=== PATIENT | male | born 1940 | race Caucasian/White ===

== ENCOUNTER → 2016-09-02 | Outpatient (CLI) | payer MEDICARE, OTHER ==
--- NOTE | 2016-09-02 10:33 | CT ---
EXAM DESCRIPTION: CT ABDOMEN WITHOUT IV CONTRAST CLINICAL HISTORY: 75 y/o M, AORTIC DISSECTION COMPARISON: None TECHNIQUE: Thin slice axial images of the abdomen were performed without contrast. FINDINGS: Bilateral emphysema noted. Scarring seen within the right lower lobe. Nodular opacity seen within the right lower lobe. The largest measures 4 mm in diameter There is a dissection of the abdominal aorta. This is poorly visualized on today's study. It is within the thoracic abdominal aorta and the upper abdominal aorta. The AP diameter of the aorta at the level of the aortic hiatus is 2.9 cm. Spleen is unremarkable. The liver is unremarkable. Gallbladder is unremarkable. Small bowel and colon which are incompletely imaged demonstrate no concerning findings. Bilateral kidneys are unobstructed. There are likely peripelvic cysts noted. IMPRESSION: Poorly visualized thoracic and abdominal aortic dissection. The abdominal aorta measures 2.9 cm of the level of the aortic hiatus and 2.2 cm proximal to the bifurcation. Electronically signed by: Kirill Ash MD 09/02/2016 10:31
== END ==
LOC: CT 09:22
PROVIDERS: ATTEND Family Medicine
DX: I71.01 Dissection of thoracic aorta (principal)

== ENCOUNTER → 2017-07-06 | Outpatient (CLI) | payer MEDICARE, OTHER | END | disposition home or self-care (01) | LOC: GMAH 10:23 | PROVIDERS: ATTEND Family Medicine | DX: Z12.5 Encounter for screening for malignant neoplasm of prostate (principal); E78.2 Mixed hyperlipidemia; E53.8 Deficiency of other specified B group vitamins | CPT/HCPCS: 82607; 84443; 84550; G0103 ==

== ENCOUNTER → 2017-08-30 | Outpatient (CLI) | payer MEDICARE, OTHER ==
--- NOTE | 2017-08-30 21:45 | CT ---
EXAM DESCRIPTION: CTA Chest CT. CLINICAL HISTORY: ASCENDING AORTA GRAFT. Surgical repair of aortic dissection. COMPARISON: CT scan of the abdomen without contrast 09/02/2016. TECHNIQUE: Spiral-axial scans at 5.0 mm intervals through the lungs and thorax with IV contrast. Coronal and sagittal 2.0 mm constructions. Oblique sagittal "candy cane" and orthogonal long axis MIP 5.0 mm reconstructions. No adverse reactions. Total Exam DLP: 596.47 mGy-cm. This exam was performed according to our departmental dose-optimization program which includes automated exposure control, adjustment of the mA and/or kV according to patient size and/or use of iterative reconstruction technique; to reduce radiation dose to as low as reasonably achievable (ALARA). FINDINGS: An aortic dissection can be seen that begins anterior to the origin of the right innominate artery and extends into the distal aortic arch, the descending thoracic aorta, and at least to the level of the origin of the left renal artery. Both lumens of the dissected aorta contain contrast material with the larger accessory lumen demonstrating gradually decreasing contrast into the abdomen. The smaller main lumen connects with the larger accessory lumen via a long narrow channel in the dissected wall, in the mid-arch. The main lumen, which connects with the aortic root and ascending aortic arch supplies the brachiocephalic vessels, celiac axis, SMA, and the right renal artery. The minimally opacified larger accessory lumen supplies the left renal artery; no significant amount of contrast seen in the artery. Low-density not opacified material begins at the level of the aortic root; and extends past the origin of the dissection to the top of the aortic arch. Minimal irregular contrast density between this nonopacified material and the aortic wall at the root. Similar irregular contrast density is noted at the base of the dissection in the proximal arch, abutting the main lumen. Surgical clips abutting the dissection origin and sternotomy wires are also noted. No extravasation of contrast from the distal aortic arch to the most inferior image. Scarring in the bilateral bases more on the right. No pleural effusion or pneumothorax. Scattered small parenchymal blebs. Bilateral basilar pleural thickening. 6.4 x 5.2 mm soft tissue nodule subpleural left lower lobe (series 2, image 46). Totals. Minimal bilateral pleural thickening. No soft tissue masses or enlarged lymph nodes in the mediastinum or hilar regions. No enlarged lymph nodes in the axilla. Symmetric contrast enhancement of the thyroid gland. No pericardial contrast or effusion. Diffuse thoracic kyphosis with narrowing of some anterior vertebral bodies heights. Also levo kyphoscoliosis. Included adrenal glands and spleen are normal density and enhancement. Nephrogram seen in the left kidney but not the right. Included liver and pancreas are unremarkable. Partial visualization of the gallbladder and common bile duct. No subdiaphragmatic fluid or free air in the included peritoneal space. IMPRESSION: 1. Aortic dissection with previous repair beginning anterior and distal to the brachial cephalic vessels and extending at least to the level of the left renal artery. The smaller main lumen supplies the brachiocephalic vessels, celiac axis, SMA, and right renal artery. Nephrogram in the right kidney. The larger accessory lumen demonstrates progressively decreasing contrast to the left renal artery; left kidney does not show any significant enhancement. The lumens communicate via a channel in the arch. 2. Nonopacified hematoma/soft tissue forms a collar which is abutting the aortic root laterally and anteriorly and extends to the beginning of the dissection. Irregular contrast enhancement in the superior and inferior margins of this soft tissue/hematoma, abutting the main lumen. Surgical clips at the origin of the dissection. 3. soft tissue nodule with mean diameter 5.8 mm in the subpleural left lower lobe. Considering [facility] Best Practice recommendations based upon 2017 Fleischner Society recommendations for single solid lung nodule follow-up, chest CT follow-up for the nodule should be performed in 12 month interval. Please see below.* *2017 Fleischner Society Recommendations for Single Solid Lung Nodule Follow-Up based on size (average of long- and short-axis diameters) <6 mm Low-Risk Patient: No routine follow-up <6 mm High-Risk Patient: Optional CT at 12 months. Electronically signed by: Sammy Lloyd MD 08/30/2017 9:44 PM CHECK OUT CLERK Workstation: [id number]
== END | disposition home or self-care (01) ==
LOC: CT 07:42
DX: Z95.9 Presence of cardiac and vascular implant and graft, unspecified (principal)

== ENCOUNTER → 2018-05-24 | Outpatient (CLI) | payer MEDICARE, OTHER ==
--- NOTE | 2018-05-24 14:22 | CT ---
EXAM DESCRIPTION: Chest w/o Contrast CLINICAL HISTORY: 77 years Male, LUNG NODULE LT LOWER LOBE, PRESENCE OF ASCENDING AO GRAFT COMPARISON: 30 August 2017 TECHNIQUE: Transaxial images were obtained without intravenous or oral contrast media. Sagittal and coronal reconstruction was performed.This exam was performed according to our departmental dose-optimization program, which includes automated exposure control, adjustment of the mA and/or kV according to patient size and/or use of iterative reconstruction technique. FINDINGS: The thyroid is normal in appearance. The patient is poststernotomy. Calcific atherosclerotic changes observed in the a sending thoracic aorta. No pleural fluid is seen. No adrenal masses are detected. A pulmonary nodules observed in the left lower lobe in the lateral costophrenic sulcus measuring 7.3 mm in diameter. It can be seen seen on the previous exam and remains unchanged. A 3.3 mm diameter nodules also observed in the posterior costophrenic sulcus and also can be seen previously and remains unchanged. A pleural-based calcified granulomas observed in the right lower lobe. There is some atelectasis or parenchymal scarring in the right lower lobe. Minimal bullous disease is also observed. There is a small peripheral nodule in the right lower lobe measuring 4.6 mm in diameter. It can be seen previously though is not as readily identified. On the previous scan there was some respiratory motion which partially blurs the nodule. The exam also reveals an ovoid fissure-based nodule in the left lower chest. The patient is poststernotomy. A mild left thoracic scoliosis is observed. A small calcified granulomas also observed in the left upper lobe. Mild apical pleural thickening is observed. Diffuse degenerative changes are observed throughout the thoracic spine. IMPRESSION: 1. Small bilateral pulmonary nodules are observed and remain essentially unchanged from the previous exam. Follow-up exam in the year is recommended. 2. An abnormal appearance is again observed to the asending thoracic aortic arch and is unchanged from the previous exam. This in part apparently represents an aortic graft. Electronically signed by: Freddie Dominguez MD 05/24/2018 2:21 PM CDT
== END ==
LOC: CT 09:39
DX: R91.1 Solitary pulmonary nodule (principal)

== ENCOUNTER → 2018-07-19 | Outpatient (CLI) | payer MEDICARE, OTHER | LOC: GMAH 10:38 | PROVIDERS: ATTEND Family Medicine | DX: E78.2 Mixed hyperlipidemia (principal); Z12.5 Encounter for screening for malignant neoplasm of prostate | CPT/HCPCS: 84443; 84550; G0103 ==

== ENCOUNTER → 2019-06-01 | Outpatient (CLI) | payer MEDICARE, OTHER ==
--- NOTE | 2019-06-01 11:17 | CT ---
EXAM DESCRIPTION: Chest w/o Contrast CLINICAL HISTORY: LUNG NODULE LEFT LOWER LOBE COMPARISON: May 24, 2018 and August 30, 2017 TECHNIQUE: Noncontrast transaxial CT images of the chest are obtained. This exam was performed according to our departmental dose-optimization program, which includes automated exposure control, adjustment of the mA and/or kV according to patient size and/or use of iterative reconstruction technique . FINDINGS: Heart is normal size. Postsurgical changes from sternotomy. Ascending thoracic aortic graft is stable with mild dilatation of the aortic arch and descending thoracic aorta measuring maximum 4.1 cm diameter. Dissection of the aortic arch to descending thoracic aorta is not well appreciated on noncontrast images although faint dissection flap remains visible. No pathologically enlarged mediastinal, hilar, or axillary lymphadenopathy seen. No pleural or pericardial effusion. Visualized portion of the upper abdomen shows no acute findings. Lungs are hyperinflated. Mild to moderate emphysematous changes to lungs are seen. Several calcified pulmonary nodules are stable compared to previous exam. Several noncalcified pulmonary nodules measuring less than 5 mm are stable in size and number from previous. The largest nodule measures 7 mm in the anterior left lower lobe and is stable compared to 2018. Interstitial scarring or atelectasis in the right lower lobe similar to previous. The tracheobronchial tree shows no acute findings. Osseous structures show no aggressive bony lesions. Moderate spondylitic changes of the thoracic spine with smooth increased kyphosis of the spine. IMPRESSION: Emphysematous changes to the chest with areas of interstitial scarring in the right lower lobe are stable from previous. Postsurgical changes with ascending thoracic aortic graft and evidence of stable aortic dilatation, tortuosity, and dissection compared to prior exams. Multiple stable calcified and noncalcified pulmonary nodules which show little interval liner roll changer nearly 2 years likely representing benign etiology. Optional follow-up imaging in August 2019 to confirm two-year stability. Electronically signed by: Don Rome MD 06/01/2019 11:15 AM CDT
== END ==
LOC: CT 09:09
DX: R91.8 Other nonspecific abnormal finding of lung field (principal); J43.9 Emphysema, unspecified; Z95.828 Presence of other vascular implants and grafts; Z98.890 Other specified postprocedural states